=== PATIENT | male | born 1975 | race Two or more races ===

== ENCOUNTER 2024-08-02 11:37 | Emergency (ER) | payer BC, SELFPAY ==
--- NOTE | 2024-08-02 12:24 | XR_ITS ---
Examination: Hand, left 2 views Technique: Hand AP, lateral 2 views Date and time of exam: August 02, 2024 at 1226 hrs. Indications: Injury to the hand today, hand pain Findings: No acute fracture No dislocation No foreign body Impression: No acute fracture
[2024-08-02 12:26] VITALS: BP 133/87; PULSE 86; RESP 16; TEMP 36.8; O2SAT 98; BMI 33.5
[2024-08-02] MEDS: LIDOCAINE HCL 1% 20 ML VIAL 10 ML INFL (12:34)
--- NOTE | 2024-08-02 14:07 | EDNOTE_ITS ---
ED Wound/Laceration-RME/HPI General Chief Complaint: Wound/Laceration Stated Complaint: CUT LEFT HAND ON METAL SHEET Time Seen by Provider: 08/02/24 12:17 Source: patient Arrival date/time: 08/02/24 11:37 49-year-old male who presented to the emergency department with complaints of a laceration to his left palm. He does report he was cutting metal sheets when he accidentally slipped lacerating the palm. of his hand. Patient did not attempt any interventions or take any OTC medications prior to ED visit. Admits to having DT 3 years ago. No other concerns reported today Mode of arrival: ambulatory Limitations: no limitations Related Data Previous Rx's ?Medication ?Instructions ?Recorded Hydrocodone/Acetaminophen * (NORCO 1 tab PO Q6H PRN PAIN #20 tabs 03/10/ 5/325 *) cephalexin 500 mg capsule 500 mg PO BID 5 days #10 caps 08/02/24 Allergies Allergy/AdvReac Type Severity Reaction Status Date / Time NKA* Allergy Uncoded 08/02/24 11:38 Review of Systems Review of Systems Systems Reviewed: All systems reviewed, normal except as documented Narrative Review of Systems: Gen: No fever, no chills, no weight loss EYES: No discharge, no visual changes, no pain HEENT: No ear pain, no congestion, no sore throat PULM: No shortness of breath, no cough, no congestion CV: No chest pain, no dyspnea on exertion, no palpitations GI: No nausea, no vomiting, no diarrhea, no pain, no constipation : No frequency, no urgency,? no dysuria Musc/skel: No joint pain, no back pain Skin: positive laceration left hand ED Exam General Limitations: Present no limitations General appearance: Present alert and in no apparent distress Head Head exam: Present atraumatic Eye Eye exam: Present normal appearance, PERRL and EOMI ENT ENT exam: Present normal exam, normal oropharynx and mucous membranes moist Neck Neck exam: Present normal inspection, full ROM and trachea midline Chest Chest inspection: Present normal inspection and symmetric chest wall rise Respiratory Respiratory exam: Present normal lung sounds bilaterally Cardiovascular Cardiovascular exam: Present regular rate, normal rhythm, normal heart sounds, +S1 and +S2 Abdominal Exam Abdominal exam: Present soft and normal bowel sounds Extremities Exam Extremities exam: Present full ROM Expanded Upper Extremity Exam Shoulder exam: Present normal inspection Arm exam: Present normal inspection Elbow exam: Present normal inspection Hand exam: Present tenderness Hand L/R front image: 2 1. laceration Back Exam Back exam: Present normal inspection and full ROM Neurological Exam Neurological exam: Present alert, oriented X3 and CN II-XII intact Psychiatric Psychiatric exam: Present normal affect and normal mood Skin Skin exam: Present warm, dry, intact and normal color Course Quality Measures none Orders Category Date Time Status Wound Care NOW Care 08/02/24 12:24 Completed XR hand LT 2V Stat Exams 08/02/24 12:24 Completed Lidocaine 1% 20 ml [Xylocaine 1% 20 ML] Med 08/02/24 12:24 Discontinued 10 ml INFL X1 ONE Vital Signs Vital signs: Vital Signs Temperature 98.2 F 08/02/24 12:26 Pulse Rate 86 08/02/24 12:26 Respiratory Rate 16 08/02/24 12:26 Blood Pressure 133/87 H 08/02/24 12:26 Pulse Oximetry (%) 98 08/02/24 12:26 Oxygen Delivery Method Room Air 08/02/24 12:26 Procedures -ED Laceration Laceration 1: Site: hand Side (If applicable): right Size (cm): 3 Description: linear and flap Depth: simple, single layer Local Anesthetic: lidocaine 1% Amount of anesthesia used (mL): 7 Pre-repair: wound explored and irrigated extensively Skin layer closed with: vicryl Size (cm): 4-0 Number of sutures: 6 Technique: simple, interrupted Wound / Laceration MDM Narrative MDM Narrative:: 49-year-old presented with a palm laceration with metal sheet. X-ray revealed no foreign body. Laceration repaired see procedure note. Patient tolerated well. Patient data External records reviewed:: [facility] previous records Clinical information provided by:: patient Social determinants that could affect healthcare access:: none Patient has the following chronic illnesses:: none How is presenting disease/condition affected by chronic disease/condition?: no chronic disease Evaluation data The following diagnostics were reviewed and interpreted by me:: radiology exam(s) Lab and/or radiology exams considered but not ordered:: Yes it was considered Interpretation Summary: Examination: Hand, left 2 views Technique: Hand AP, lateral 2 views Date and time of exam: August 02, 2024 at 1226 hrs. Indications: Injury to the hand today, hand pain Findings: No acute fracture No dislocation No foreign body Impression: No acute fracture Medications / Prescriptions Medications or Prescriptions considered but not ordered:: None Medication administrations:: Medication Administration History Discontinued Medications Lidocaine HCl (Lidocaine Hcl 1% 20 Ml Vial) 10 ml INFL X1 ONE Stop: 08/02/24 12:25 Last Admin: 08/02/24 12:34 Dose: 10 ml Documented By: [facility] Comments: USED BY PROVIDER All medications administered and effective Consultations Consultation(s) initiated? (list below): No Diagnosis Wound Differential Diagnosis: laceration Most likely diagnosis given after review of the tests above:: Laceration to the hand Admission Indicated Admission indicated?: not indicated Explain why admission is indicated or not indicated:: None Admission Request Was there a request for admission?: No Disposition Plan Disposition Plan: Discharge Discharge Attestation Discharge Attestation: The patient and all family members were given an opportunity to ask questions and understood the discharge instructions. Discharge instructions specifically effects, indications for sooner follow up or return to the emergency department, and the expected course of current diagnosis. Patient condition: Stable Discharge Plan Plan Patient Disposition: HOME (Self Care) Patient condition on transfer: Stable Prescriptions/Referrals Prescriptions/Med Rec: New cephalexin 500 mg capsule 500 mg PO BID 5 Days Qty: 10 0RF No Action Hydrocodone/Acetaminophen * (NORCO 5/325 *) 1 TAB tablet 1 tab PO Q6H PRN (Reason: PAIN) Qty: 20 0RF Problem List Clinical Impression: Laceration Patient/Caregiver Discharge Instructions Discharge Activity: activity as tolerated Education Materials: ED Laceration Hand with ... Additional Instructions: Please follow up with Primary Doctor in 7-10 day for suture removal. Please return to ER if theres is any sign of infection. Please keep wound clean and dry. Print Language: Croatian Stand Alone Forms: Alexandra Award Info., Work/School Release, Patient Portal Info Letter PA/ANDREIA Supervising Physician PA/ANDREIA Supervising Physician: Dr Prieto
== END 2024-08-02 14:42 | disposition home or self-care (01) ==
PROVIDERS: Emergency Provider Emergency Medicine; PCP Family Medicine
DX: S61.412A Laceration without foreign body of left hand, initial encounter (principal); W26.8XXA Contact with other sharp object(s), not elsewhere classified, initial encounter
CPT/HCPCS: 12002; 73120; 99283; J3490